=== PATIENT | female | born 1995 | race Asian ===

== ENCOUNTER 2020-01-26 05:30 | Inpatient (IN) | payer BC, OTHER ==
[2020-01-26] MEDS ORDERED: Acetaminophen 500 MG TAB PO PRN (07:07)
[2020-01-26] MEDS ORDERED: HYDROcodone/Acetaminophen 5/325 mg Tablet PO PRN (07:07)
[2020-01-26] MEDS ORDERED: Ibuprofen 800 MG TAB PO PRN (07:07)
[2020-01-26] MEDS ORDERED: Methylergonovine 0.2 MG/ML VIAL IM PRN (07:07)
[2020-01-26] MEDS ORDERED: hydrALAZINE 20 MG/ML VIAL SLOW IVP PRN ×2 (07:07→13:28)
[2020-01-26] MEDS ORDERED: Ondansetron PF 4 MG/2 ML Vial IVP PRN ×2 (07:07→10:26)
[2020-01-26] MEDS ORDERED: Diphenoxylate HCl/Atropine Tablet PO PRN ×2 (07:07)
[2020-01-26] MEDS ORDERED: Promethazine HCl 25 MG/ML VIAL IM PRN ×2 (07:07→10:26)
[2020-01-26] MEDS ORDERED: NS / Oxytocin 40 units/1000ml 1,000 ML IV PRN (07:07)
[2020-01-26] MEDS ORDERED: Lidocaine 1% (PF) 30 ML VIAL SC PRN (07:07)
[2020-01-26] MEDS ORDERED: Butorphanol Tartrate 1 MG/ML VIAL SLOW IVP PRN (07:07)
[2020-01-26] MEDS ORDERED: NS w/ Oxytocin 10 units 500 ML IV SCH (07:07)
[2020-01-26] MEDS ORDERED: Carboprost 250 MCG/ML AMP IM PRN (07:07)
[2020-01-26] MEDS: Lactated Ringer's 1,000 ML IV SCH ×3 (07:26→16:13)
[2020-01-26 08:04] LABS: Hemoglobin 11.6 g/dL (12.0-16.0); Mean Corpuscular HGB CONC 34.9 g/dL (32.0-36.0); Mean Corpuscular Hemoglobin 31.4 pg (27.0-31.0); Mean Corpuscular Volume 90.1 fL (78.0-98.0); Mean Platelet Volume 7.9 fL (7.4-10.4); Platelet Count 217 thou/uL (130-400); RBC Distribution Width 13.2 % (11.5-14.5); Red Blood Cell (RBC) Count 3.69 mill/uL (4.20-5.40); White Blood Cell (WBC) Count 10.5 thou/uL (4.8-10.8)
[2020-01-26 08:31] VITALS: BMI 38.0
[2020-01-26 08:49] LABS: HBSAg Index 0.13 S/CO (0-0.99); Hep B Surf Ag Non-Reactive S/CO (NonReactive); Syphilis Antibody Nonreactive (Nonreactive); Syphilis Antibody Index 0.04 S/CO (<1.00 Non-Reactive)
[2020-01-26] MEDS ORDERED: Bupivacaine 0.25% HCL 30 ML VIAL ONE (09:20)
[2020-01-26] MEDS ORDERED: Fentanyl 4 mcg/Bup 0.1% Cadd 100 ML ONE (09:41)
[2020-01-26] MEDS ORDERED: diphenhydrAMINE 50 MG/ML VIAL IVP PRN (10:26)
[2020-01-26] MEDS ORDERED: Lactated Ringer's 500 ML IV PRN (10:26)
[2020-01-26] MEDS ORDERED: Acetaminophen 325 MG TAB PO PRN (10:26)
[2020-01-26] MEDS ORDERED: Naloxone HCl 0.4 mg/ml Vial IVP PRN ×2 (10:26)
[2020-01-26] MEDS ORDERED: EPHEDRINE 25 MG/5 ML SYRINGE SLOW IVP PRN (10:26)
[2020-01-26] MEDS ORDERED: Communication Order-Pharmacy FS PRN (10:30)
[2020-01-26] MEDS ORDERED: Fentanyl 4 mcg/Bupivacaine 0.1% Cassette 100 ML EPIDURAL SCH (10:30)
[2020-01-26] MEDS ORDERED: traMADol HCl 50 MG TAB PO PRN (13:28)
[2020-01-26] MEDS ORDERED: Benzocaine-Menthol 82.5 ML CAN TOP PRN (13:28)
[2020-01-26] MEDS ORDERED: Milk Of Magnesia 30 ML UDCUP PO PRN (13:28)
[2020-01-26] MEDS ORDERED: Bisacodyl 10 MG SUPP PR PRN (13:28)
[2020-01-26] MEDS ORDERED: Preparation H Ointment 28 GM TUBE PR PRN (13:28)
[2020-01-26] MEDS ORDERED: Misoprostol 200 MCG TAB VAG PRN (13:28)
[2020-01-26] MEDS ORDERED: Adacel (T-DAP) 0.5 ML SYRINGE IM ONE (13:28)
[2020-01-26] MEDS ORDERED: NS / Oxytocin 40 units/1000ml 1,000 ML IV SCH (13:30)
--- NOTE | 2020-01-26 13:30 | PDOC.OPDEL ---
OB Operative/Delivery Note Delivery Dr/Surgeon: Rodri Pre-Delivery Diagnosis: elective induction Procedure/Post Delivery Dx: spontaneous vaginal delivery Weeks gestation: 39 Anesthesia: epidural - Findings A Sex: male - 1 min: 9 - 5 min: 9 - Additional Findings/Plan Placenta delivered: spontaneous Repaired Obstetrical Laceration: 1st degree Estimated blood loss: 100ml Post delivery plan: routine recovery
[2020-01-26] MEDS: Ibuprofen 800 MG TAB PO SCH ×2 (16:13→20:12)
[2020-01-26] MEDS: Ferrous Sulfate 325 MG TAB PO SCH (16:29)
[2020-01-26] MEDS: Docusate Calcium (SURFAK) 240 MG CAP PO SCH (20:12)
[2020-01-27] MEDS: Ibuprofen 800 MG TAB PO SCH ×2 (05:54→14:35)
--- NOTE | 2020-01-27 07:53 | PDOC.PP ---
Post Progress Note Post Day #: 1 PO intake tolerated: yes Flatus: yes Ambulation: yes Vital Signs (12 hours) Temp Pulse Resp BP 01/27/20 05:58 97.9 F 75 14 116/84 01/27/20 01:58 98.0 F 74 12 116/74 Weight Weight 215 lb Result Diagrams: 01/26/20 07:35 Additional Labs: Post Labs Blood Type B POSITIVE 01/26/20 07:35 Hep Bs Antigen Non-Reactive S/CO (NonReactive) 01/26/20 07:35 - Assessment/Plan Doing well post op day 1. Will anticipate this pm. F/u 6 weeks.
[2020-01-27 08:14] VITALS: BP 119/79; TEMP 97.7
[2020-01-27] MEDS: Docusate Calcium (SURFAK) 240 MG CAP PO SCH (08:14)
[2020-01-27] MEDS: Ferrous Sulfate 325 MG TAB PO SCH (08:15)
[2020-01-27] MEDS ORDERED: Prenatal Vitamin 1 TAB PO SCH (09:00)
== END 2020-01-27 16:30 | disposition home or self-care (01) | DRG 807 ==
LOC: L&D 07:05 → 3SW 15:37
PROVIDERS: ADMIT Obstetrics & Gynecology; ATTEND Obstetrics & Gynecology
PROC: 10E0XZZ Delivery of Products of Conception, External Approach (ICD-10-PCS; principal; 2020-01-26)
PROC: 10907ZC Drainage of Amniotic Fluid, Therapeutic from Products of Conception, Via Natural or Artificial Opening (ICD-10-PCS; 2020-01-26)
DX: O70.0 First degree perineal laceration during delivery (principal); Z37.0 Single live birth; Z3A.39 39 weeks gestation of pregnancy
CPT/HCPCS: 36415; 51702; 85027; 86780; 86850; 86900; 86901; 87340; 87635; J2590; S0020; U0003